=== PATIENT | female | born 1960 | race Two or more races ===

== ENCOUNTER 2020-01-19 07:20 | Day surgery (SDC) | payer OTHER ==
[~2020-01-19 07:20] MED LIST: GRALISE600 MG PO; LYRICA300 MG PO; MAXIM PO; VITAMIN D PO; VITAMIN D-40010 MCG PO; VITAMIN PO; [UNRECOGNIZED DRUG - OTHER] PO
[2020-01-19] MEDS ORDERED: PERCOCET 5-3251 EACH PO (10:36)
[2020-01-19] MEDS ORDERED: COLACE100 MG PO (10:37)
== END 2020-01-19 14:30 | disposition home or self-care (01) ==
LOC: CIR.AMB 07:20 → EDBD 10:15 → CIR.AMB 14:30
PROVIDERS: ATTEND Surgery
DX: K64.4 Residual hemorrhoidal skin tags (principal); D23.5 Other benign neoplasm of skin of trunk